=== PATIENT | male | born 1985 | race Caucasian/White ===

== ENCOUNTER 2022-01-22 20:25 | Emergency (ER) | payer BC ==
--- NOTE | 2022-01-22 21:45 | NUR ---
Patient called 3x, no answer. Patient left without being triaged. ER MD aware
== END 2022-01-22 21:45 | disposition left against medical advice (07) ==
LOC: SED 20:25
DX: M79.645 Pain in left finger(s) (principal); Z53.21 Procedure and treatment not carried out due to patient leaving prior to being seen by health care provider